=== PATIENT | female | born 1995 | race Caucasian/White ===

== ENCOUNTER 2019-06-06 03:12 | Emergency (ER) | payer OTHER ==
[~2019-06-06] VITALS: Ht 170.2 cm; Wt 63.5 kg
--- NOTE | 2019-06-06 03:15 | NUR ---
ED Nurse Note: Patient brought in by ambulance with complaints of ETOH intoxication. Patient is actively vomitting and visibly nauseas. Will continue to monitor.
--- NOTE | 2019-06-06 03:33 | Emergency Room Report ---
History of Present Illness General Chief Complaint: Alcohol Intoxication Source: Patient Present Illness HPI 23-year-old female who was brought in by EMS for chief complaint of alcohol intoxication. She was at a [place] [employer]. She is been drinking heavily. Also says she took some Adderall. She was intoxicated and was vomiting. Unable to keep anything down. Her friend called 911. Denies any trauma. No pain. No diarrhea. No suicidal thoughts homicidal thought. Allergies: Coded Allergies: No Known Allergies (Unverified , 06/06/19) Patient History Past Medical History: see triage record, old chart reviewed Past Surgical History: none Pertinent Family History: none Social History: Reports: alcohol use Now: No Immunizations: other Reviewed Nursing Documentation: PMH: Agreed; PSxH: Agreed Nursing Documentation-PMH Past Medical History: No Stated History Review of Systems Eye: Denies: eye pain, blurred vision ENT: Denies: ear pain, nose congestion, throat swelling Respiratory: Denies: cough, shortness of breath Cardiovascular: Denies: chest pain, palpitations Gastrointestinal: Reports: nausea, vomiting; Denies: abdominal pain, diarrhea Musculoskeletal: Denies: back pain, joint pain Skin: Denies: rash Neurological: Denies: headache, numbness Endocrine: Denies: increased thirst, increased urine Hematologic/Lymphatic: Denies: easy bruising All Other Systems: negative except mentioned in HPI Physical Exam Vital Signs Date Time Temp Pulse Resp B/P (MAP) Pulse Ox O2 Delivery O2 Flow Rate FiO2 06/06/19 03:11 97.9 102 18 104/65 (78) 98 Room Air Vitals normal Sp02 EP Interpretation: reviewed, normal General Appearance: well appearing, no apparent distress, other - Intoxicated Head: normocephalic, atraumatic Eyes: bilateral eye PERRL, bilateral eye EOMI ENT: hearing grossly normal, normal pharynx Neck: full range of motion, supple, no meningismus Respiratory: chest non-tender, lungs clear, normal breath sounds Cardiovascular #1: regular rate, rhythm, no murmur Gastrointestinal: normal bowel sounds, non tender, no mass, no organomegaly, no bruit, non-distended Musculoskeletal: back normal, normal range of motion Psychiatric: mood/affect normal Medical Decision Making Diagnostic Impression: Primary Impression: Acute alcoholic intoxication Qualified Codes: F10.920 - Alcohol use, unspecified with intoxication, uncomplicated ER Course This patient presents with alcohol intoxication. No trauma to warrant x-ray or CT scan. Will observe until clinical sobriety. Last Vital Signs Date Time Temp Pulse Resp B/P (MAP) Pulse Ox O2 Delivery O2 Flow Rate FiO2 06/06/19 03:11 97.9 102 18 104/65 (78) 98 Room Air Status: improved Disposition: HOME, SELF-CARE Condition: Stable Patient Instructions: Alcohol Intoxication, [id number] Additional Instructions: Abstain from drinking to excess. Follow-up with your doctor in 7 days. Return if worse. Polo Maher MD Jun 06, 2019 03:33
[2019-06-06 03:57] VITALS: BP 104/65
[2019-06-06 05:40] VITALS: BP 109/68
--- NOTE | 2019-06-06 05:40 | NUR ---
ED Nurse Note: pt cleared to be d/c per ermd, pt discharge and aftercare instruction provided, pt advised to follow up with pcp and stop drinking alcohol. pt states she will take cab back home. pt reports she is missing her phone, pt informed that pt did not come with cellphone, advised her to contact [facility] department for follow up. pt vss. iv d/c and id band taken out.
--- NOTE | 2019-06-06 05:45 | NUR ---
ED Nurse Note: NOTED PT CELL PHONE IN PT'S SHOES.
== END 2019-06-06 05:45 | disposition home or self-care (01) ==
LOC: EDBD 03:12 → EMR 03:42
DX: F10.920 Alcohol use, unspecified with intoxication, uncomplicated (principal)
CPT/HCPCS: 36415; 96361; 96374; 99284; G0480; J2405; J7030